=== PATIENT | male | born 1980 | race Caucasian/White ===

== ENCOUNTER 2019-07-08 18:52 | Inpatient (IN) | payer MEDICAID ==
[~2019-07-08] VITALS: Ht 167.6 cm; Wt 79.6 kg
[~2019-07-08 18:52] MED LIST: CLEOCIN HCL300 MG PO; COR3 PO; FLA500 PO; NORCO1 TA2 PO
[2019-07-08 19:07] VITALS: Ht 167.6 cm; Wt 79.6 kg
[2019-07-08 20:13] LABS: PLATELET COUNT 487 x10^3mcL (130-400); RED CELL DISTRIBUTION WIDTH 14.7 % (11.5-14.5)
[2019-07-08 20:18] LABS: CALCIUM 9.4 mg/dL (8.5-10.1); CREATININE SERUM 1.7 mg/dL (0.7-1.3)
[2019-07-08 20:30] LABS: BILIRUBIN TOTAL 0.49 mg/dL (0.20-1.00)
[2019-07-08 20:37] LABS: ALBUMIN 3.1 g/dL (3.4-5.0); TOTAL PROTEIN, SERUM 9.2 g/dL (6.4-8.2)
[2019-07-08 20:49] LABS: BAND NEUTROPHIL 3 % (0-10); BASOPHIL 0 % (0-2); MONOCYTE 5 % (0-7); PLATELET MORPHOLOGY PLATELETS INCREASED; SEGMENTED NEUTROPHILS 83 % (37-75); rbc morphology (normal/abnorm) NORMAL (NORMAL)
[2019-07-08 21:39] LABS: microscopic required? YES; urine erythrocyte TRACE (NEGATIVE)
[2019-07-08 22:44] LABS: MAGNESIUM 2.2 mg/dL (1.8-2.4); PHOSPHOROUS 4.3 mg/dL (2.5-4.9)
[2019-07-08 22:45] LABS: CHOLESTEROL/HDL RATIO 4.6
[2019-07-08 23:18] LABS: FREE T4 1.15 ng/dL (0.76-1.46); FREE THYROXINE INDEX 2.7 ug/dL (1.4-4.5); T4(THYROXINE) 8.9 ug/dL (4.7-13.3)
[2019-07-09] VITALS (7 sets, daily range): BP systolic 103–138; BP diastolic 76–91
[2019-07-09 00:14] LABS: T3 TOTAL 1.27 ng/mL
[2019-07-09 02:54] LABS: AMPHETAMINE QUAL UR NONE DETECTED (See below)
[2019-07-09 06:57] LABS: CALCIUM 8.5 mg/dL (8.5-10.1); CARBON DIOXIDE 22.6 mmol/L (21-32); CREATININE SERUM 1.7 mg/dL (0.7-1.3); PHOSPHOROUS 3.6 mg/dL (2.5-4.9); POTASSIUM SERUM 4.1 mmol/L (3.5-5.1)
[2019-07-09 07:13] LABS: BASOPHIL % 0.3 % (0-2)
[2019-07-09 07:16] LABS: PLATELET COUNT 457 x10^3mcL (130-400); RED CELL DISTRIBUTION WIDTH 14.8 % (11.5-14.5)
[2019-07-10 04:50] VITALS: BP 112/72
[2019-07-10 06:50] LABS: CALCIUM 8.8 mg/dL (8.5-10.1); CARBON DIOXIDE 24.9 mmol/L (21-32); CREATININE SERUM 1.9 mg/dL (0.7-1.3); POTASSIUM SERUM 4.3 mmol/L (3.5-5.1)
[2019-07-10 08:44] VITALS: BP 118/78
[2019-07-10 12:07] VITALS: BP 121/80
[2019-07-10 12:41] LABS: BAND NEUTROPHIL 2 % (0-10); BASOPHIL 0 % (0-2); MONOCYTE 4 % (0-7); SEGMENTED NEUTROPHILS 81 % (37-75)
[2019-07-10 12:42] LABS: rbc morphology (normal/abnorm) ABNORMAL (NORMAL); tear drop cell (dacryocyte) 1+
[2019-07-10 12:50] LABS: PLATELET COUNT 538 x10^3mcL (130-400)
[2019-07-10 17:56] VITALS: BP 120/79
[2019-07-10 20:37] VITALS: BP 122/78
[2019-07-11 05:55] VITALS: BP 113/79
[2019-07-11 07:03] LABS: CALCIUM 8.8 mg/dL (8.5-10.1); CARBON DIOXIDE 25.3 mmol/L (21-32); MAGNESIUM 2.2 mg/dL (1.8-2.4); PHOSPHOROUS 3.9 mg/dL (2.5-4.9); POTASSIUM SERUM 4.4 mmol/L (3.5-5.1)
[2019-07-11 07:27] LABS: BASOPHIL % 0.2 % (0-2)
[2019-07-11 07:29] LABS: RED CELL DISTRIBUTION WIDTH 14.6 % (11.5-14.5)
[2019-07-11 07:44] LABS: PLATELET COUNT 547 x10^3mcL (130-400)
[2019-07-11 09:24] VITALS: BP 113/72
[2019-07-11 12:27] VITALS: BP 113/71
[2019-07-11 16:25] VITALS: BP 107/65
[2019-07-11 20:09] VITALS: BP 114/72
[2019-07-12 05:08] VITALS: BP 100/61
[2019-07-12 06:58] LABS: CALCIUM 8.8 mg/dL (8.5-10.1); CARBON DIOXIDE 24.6 mmol/L (21-32); POTASSIUM SERUM 4.4 mmol/L (3.5-5.1)
[2019-07-12 07:29] LABS: PLATELET COUNT 577 x10^3mcL (130-400); RED CELL DISTRIBUTION WIDTH 14.8 % (11.5-14.5)
[2019-07-12 08:45] VITALS: BP 122/66
[2019-07-12 09:10] LABS: BAND NEUTROPHIL 0 % (0-10); BASOPHIL 0 % (0-2); MONOCYTE 8 % (0-7); SEGMENTED NEUTROPHILS 87 % (37-75)
[2019-07-12 09:11] LABS: PLATELET MORPHOLOGY PLATELETS INCREASED; rbc morphology (normal/abnorm) ABNORMAL (NORMAL)
[2019-07-12 13:31] VITALS: BP 114/74
[2019-07-12 18:04] VITALS: BP 119/73
[2019-07-12 20:51] VITALS: BP 115/74; BP 15/74
[2019-07-13 05:33] VITALS: BP 107/67
[2019-07-13 06:54] LABS: BASOPHIL % 1.2 % (0-2); RED CELL DISTRIBUTION WIDTH 14.4 % (11.5-14.5)
[2019-07-13 07:10] LABS: CALCIUM 9.2 mg/dL (8.5-10.1); CARBON DIOXIDE 28.9 mmol/L (21-32); CREATININE SERUM 2.1 mg/dL (0.7-1.3); PLATELET COUNT 682 x10^3mcL (130-400); POTASSIUM SERUM 4.5 mmol/L (3.5-5.1)
[2019-07-13 11:03] VITALS: BP 143/88
[2019-07-13 16:15] VITALS: BP 137/96
[2019-07-13 20:58] VITALS: BP 125/86
[2019-07-14 05:20] VITALS: BP 125/80
[2019-07-14 06:15] LABS: CALCIUM 9.8 mg/dL (8.5-10.1); POTASSIUM SERUM 4.1 mmol/L (3.5-5.1)
[2019-07-14 06:27] LABS: BASOPHIL % 0.3 % (0-2); RED CELL DISTRIBUTION WIDTH 14.4 % (11.5-14.5)
[2019-07-14 08:10] LABS: PLATELET COUNT 647 x10^3mcL (130-400)
[2019-07-14 08:24] VITALS: BP 106/68
[2019-07-14 12:17] VITALS: BP 118/76
[2019-07-14 16:36] VITALS: BP 112/73
[2019-07-14 20:39] VITALS: BP 109/66
[2019-07-15] VITALS (7 sets, daily range): BP systolic 107–132; BP diastolic 51–88
[2019-07-15 06:42] LABS: BASOPHIL % 1.1 % (0-2)
[2019-07-15 06:54] LABS: PLATELET COUNT 642 x10^3mcL (130-400); RED CELL DISTRIBUTION WIDTH 14.6 % (11.5-14.5)
[2019-07-15 07:08] LABS: CARBON DIOXIDE 28.5 mmol/L (21-32); CREATININE SERUM 1.7 mg/dL (0.7-1.3); POTASSIUM SERUM 4.1 mmol/L (3.5-5.1)
[2019-07-16 04:20] VITALS: BP 127/83
[2019-07-16 07:02] LABS: BASOPHIL % 1.1 % (0-2); RED CELL DISTRIBUTION WIDTH 14.4 % (11.5-14.5)
[2019-07-16 07:32] LABS: BILIRUBIN DIRECT 0.16 mg/dL (0.0-0.2); BILIRUBIN TOTAL 0.33 mg/dL (0.20-1.00); CALCIUM 9.1 mg/dL (8.5-10.1); CREATININE SERUM 1.7 mg/dL (0.7-1.3); POTASSIUM SERUM 3.8 mmol/L (3.5-5.1)
[2019-07-16 07:33] LABS: ALBUMIN 2.5 g/dL (3.4-5.0); TOTAL PROTEIN, SERUM 8.3 g/dL (6.4-8.2)
[2019-07-16 07:47] VITALS: BP 117/80
[2019-07-16 08:09] LABS: PLATELET COUNT 666 x10^3mcL (130-400)
[2019-07-16] MEDS ORDERED: NOR10T PO (08:15)
[2019-07-16 10:12] VITALS: BP 126/79
[2019-07-16 11:35] VITALS: BP 121/79
[2019-07-16 12:12] VITALS: BP 126/79
== END 2019-07-16 13:24 | disposition home or self-care (01) | DRG 263 ==
LOC: ED 18:52 → DU 22:32 → MU 22:32 → EDBEDREQ 22:32 → DU 07-09 00:40 → MU 07-10 10:59 → IC 07-13 08:54 → MU 07-13 08:56 → IC 07-13 09:31 → DU 07-13 15:54 → MU 07-14 16:24
PROVIDERS: Emergency Medicine; Family Medicine; Surgery; ADMIT Internal Medicine
PROC: 0FP4X0Z Removal of Drainage Device from Gallbladder, External Approach (ICD-10-PCS; 2019-07-13)
PROC: 0FT40ZZ Resection of Gallbladder, Open Approach (ICD-10-PCS; principal; 2019-07-13 08:30)
DX: K81.0 Acute cholecystitis (principal); N17.0 Acute kidney failure with tubular necrosis; E44.0 Moderate protein-calorie malnutrition; A09 Infectious gastroenteritis and colitis, unspecified; E87.1 Hypo-osmolality and hyponatremia; F15.21 Other stimulant dependence, in remission; E78.1 Pure hyperglyceridemia; F17.200 Nicotine dependence, unspecified, uncomplicated; T36.95XA Adverse effect of unspecified systemic antibiotic, initial encounter; Z68.28 Body mass index [BMI] 28.0-28.9, adult; Z91.14 Patient's other noncompliance with medication regimen; Z79.899 Other long term (current) drug therapy; Y92.89 Other specified places as the place of occurrence of the external cause
CPT/HCPCS: 83880; 84439; 87046; 87046-59; 90658; 97116-GP; G0378; J0295; J1170; J1885; J2175; J2250; J2270; J2405; J2543; J2765; J3010; J3490; J7030; J7040; Q9967